=== PATIENT | female | born 1990 | race Caucasian/White ===

== ENCOUNTER 2016-07-14 14:40 | Observation (INO) | payer OTHER ==
[~2016-07-14] VITALS: Ht 167.6 cm; Wt 84.8 kg
[2016-07-14 15:20] VITALS: BP 118/60
== END 2016-07-14 17:35 | disposition home or self-care (01) ==
LOC: MLD 14:40
PROVIDERS: ADMIT Obstetrics & Gynecology; ATTEND Obstetrics & Gynecology
DX: O26.892 Other specified pregnancy related conditions, second trimester (principal); R10.30 Lower abdominal pain, unspecified; Z3A.26 26 weeks gestation of pregnancy
CPT/HCPCS: 76805; G0378; Q0092